=== PATIENT | female | born 1960 | race Caucasian/White ===

== ENCOUNTER 2017-02-10 09:19 | Emergency (ER) | payer MEDICAID ==
[~2017-02-10] VITALS: Ht 157.5 cm; Wt 94.8 kg
[2017-02-10 09:48] VITALS: BP 125/69
--- NOTE | 2017-02-10 10:11 | NUR ---
PATIENT ARIELLA 56 YO FEMALE BIB SELF FOR BILATERAL EYE REDNESS SEEN HERE ON FRIDAY FOR SAME THING LOST HER MEDS. HERE FOR PRESCRIPTION. AWAKE AND ALERT, ABLE TO AMBULATE. NO ACUTE DISTRESS.
--- NOTE | 2017-02-10 10:12 | NUR ---
Patient being evaluated by physician at bedside.
--- NOTE | 2017-02-10 10:23 | NUR ---
Patient discharged with v/s stable. Written and verbal after care instructions given and explained. Patient alert, oriented and verbalized understanding of instructions. Ambulatory with steady gait. All questions addressed prior to discharge. ID band removed. Patient advised to follow up with PMD. Rx of TOBRAMYCIN 0.3% OPTHALMIC SOLUTION given. Patient educated on indication of medication including possible reaction and side effects. Opportunity to ask questions provided and answered.
[2017-02-10 10:24] VITALS: BP 125/69
== END 2017-02-10 10:23 | disposition home or self-care (01) ==
LOC: MED 09:19
DX: H10.89 Other conjunctivitis (principal); R03.0 Elevated blood-pressure reading, without diagnosis of hypertension; Z90.89 Acquired absence of other organs
CPT/HCPCS: 99283

== ENCOUNTER 2019-01-18 16:36 | Emergency (ER) | payer MEDICAID ==
[~2019-01-18] VITALS: Ht 157.5 cm; Wt 90.7 kg
[2019-01-18 17:01] VITALS: BP 98/59
--- NOTE | 2019-01-18 17:04 | NUR ---
PT AMBULATORY TO [facility]
--- NOTE | 2019-01-18 19:09 | NUR ---
PT TO CHAIR B
--- NOTE | 2019-01-18 19:26 | NUR ---
RT EYE SWELLING W/ D/C SINCE YESTERDAY, DIZZINESS, NAUSEA, PT STATES SHE RECENTLY HAS BEEN HAVING MIGRAINES AND WAS PRESCRIBED [facility] BUT IS UNABLE TO FILL RX D/T LICENSE. PMH HLD, VERTIGO, SCIATICA, FATTY LIVER
--- NOTE | 2019-01-18 19:29 | NUR ---
SERGIO FERNANDEZ EVALUTING PT.
[2019-01-18] MEDS ORDERED: HYDROcodone/APAP 5/325 MG 1 TAB TAB PO ONE (19:35)
[2019-01-18] MEDS ORDERED: ONDANSETRON 4 MG ODT PO ONE (19:35)
[2019-01-18 19:56] VITALS: BP 98/59
--- NOTE | 2019-01-18 19:56 | NUR ---
Patient discharged with v/s stable. Written and verbal after care instructions given and explained. Patient alert, oriented and verbalized understanding of instructions. Ambulatory with steady gait. All questions addressed prior to discharge. ID band removed. Patient advised to follow up with PMD. Rx of ERYTHROMYCIN AND NAPROXEN WAS given. Patient educated on indication of medication including possible reaction and side effects. Opportunity to ask questions provided and answered.
== END 2019-01-18 19:56 | disposition home or self-care (01) ==
LOC: MED 16:36
DX: G43.909 Migraine, unspecified, not intractable, without status migrainosus (principal); H10.89 Other conjunctivitis; I10 Essential (primary) hypertension
CPT/HCPCS: 99283; Q0162

== ENCOUNTER 2020-01-20 14:58 | Emergency (ER) | payer OTHER ==
[~2020-01-20] VITALS: Ht 157.5 cm; Wt 82.6 kg
[2020-01-20 15:06] VITALS: BP 102/75
[2020-01-20] MEDS ORDERED: HYDROcodone/APAP 5/325 MG 1 TAB TAB PO ONE (15:50)
[2020-01-20] MEDS ORDERED: KETOROLAC 30 MG/ML VIAL IM ONE (16:10)
[2020-01-20 16:32] VITALS: BP 102/75
== END 2020-01-20 16:32 | disposition home or self-care (01) ==
LOC: MED 14:58
DX: S43.401A Unspecified sprain of right shoulder joint, initial encounter (principal); I10 Essential (primary) hypertension; Y04.8XXA Assault by other bodily force, initial encounter; Y93.89 Activity, other specified; Y92.89 Other specified places as the place of occurrence of the external cause; Y99.8 Other external cause status
CPT/HCPCS: 73000; 73020; 96372; 99284; J1885